=== PATIENT | female | born 1940 | race Caucasian/White ===

== ENCOUNTER → 2017-08-23 | Outpatient (CLI) | payer MEDICARE, OTHER ==
--- NOTE | 2017-08-23 13:16 | MR ---
EXAMINATION TYPE: MR lumbar spine wo con DATE OF EXAM: 08/23/2017 COMPARISON: NONE HISTORY: Low back pain TECHNIQUE: Multiplanar, multisequence images of the lumbar spine were acquired. FINDINGS: There is a T2 hyperintense and T1 hypointense probable 1.8 cm renal cyst. There is mild thi ckening of the left adrenal gland without focal nodule, likely related to adrenal gland hyperplasia. Bone marrow signal is unremarkable other than degenerative endplate changes at L1-L2. Conus medullari s is unremarkable terminating at L1-L2. L1-L2: There is a small broad-based disc bulge resulting in mild bilateral neural foraminal narrowing . L2-L3: There is a small broad-based disc bulge and disc desiccation with no significant neural forami nal narrowing or spinal canal stenosis. L3-L4: There is a small broad-based disc bulge and disc desiccation with no significant neural forami nal narrowing or spinal canal stenosis. L4-L5: A small central disc extrusion/herniation with 5 mm subligamentous cranial migration is seen s uperimposed upon a broad-based disc bulge. Additionally there is ligamentum flavum buckling and facet arthropathy mildly narrowing the spinal canal and left neural foramen. There is moderate right neura l foraminal narrowing and the disc bulge abuts the L4 nerve root. L5-S1: Mild disc desiccation. No herniation/protrusion or disc bulging. No canal stenosis is presen t. Foramina are patent bilaterally. IMPRESSION: 1. Small central disc herniation/extrusion with 5 mm subligamentous cranial extension. Degenerative d isc disease and facet arthropathy also contribute to moderate right neural foraminal narrowing with t he disc bulge abutting the L4 nerve root and mild spinal canal stenosis.
== END | disposition home or self-care (01) ==
LOC: RADMRIMAIN 12:12
PROVIDERS: ATTEND Family Medicine
DX: M48.061 Spinal stenosis, lumbar region without neurogenic claudication (principal); M99.73 Connective tissue and disc stenosis of intervertebral foramina of lumbar region; M51.16 Intervertebral disc disorders with radiculopathy, lumbar region; M46.86 Other specified inflammatory spondylopathies, lumbar region
CPT/HCPCS: 72148

== ENCOUNTER → 2018-12-03 | Outpatient (CLI) | payer MEDICARE ==
--- NOTE | 2018-12-03 15:55 | BD ---
EXAMINATION TYPE: Axial Bone Density DATE OF EXAM: 12/03/2018 COMPARISON: 2005 CLINICAL HISTORY: hypercalcemia Height: 5'1 Weight: 136 FRAX RISK QUESTIONS: History of Fracture in Adulthood: y Secondary Osteoporosis: 3. Menopause before 47: y RISK FACTORS HISTORY OF: Postmenopausal woman: y MEDICATIONS: Additional Medications: high blood pressure Additional History: EXAM MEASUREMENTS: Bone mineral densitometry was performed using the [employer]. Bone mineral density as measured about the Lumbar spine is: ----- L1-L4(G/cm2): 1.050 T Score Values are as follows: ----- L2: -0.4 ----- L3:-1.0 ----- L4: -2.2 ----- L1-L4: -1.1 Bone mineral density has: Decreased -6.8% since study of: 05/13/2006 Bone mineral density about the R hip (g/cm2): 0.651 Bone mineral density about the L hip (g/cm2): 0.693 T Score values are as follows: -----R Neck: -2.8 -----L Neck: -2.5 -----R Total: -2.1 -----L Total: -1.6 Bone mineral density has: Decreased -11.3% since study of: 05/13/2006 IMPRESSION: Osteopenia (T Score between -2.5 and -1). There is slightly increased risk of fracture and the patient may be considered for treatment. Re-Screen 2-5 years. NOTE: T-SCORE=SD OF THE YOUNG ADULT MEAN.
== END | disposition home or self-care (01) ==
LOC: RADBDWWP 14:02
PROVIDERS: ATTEND Family Medicine
DX: M85.80 Other specified disorders of bone density and structure, unspecified site (principal); E83.52 Hypercalcemia
CPT/HCPCS: 77080

== ENCOUNTER 2020-10-18 17:23 | Emergency (ER) | payer MEDICARE ==
[2020-10-18 17:34] VITALS: TEMP 98.4
[2020-10-18] MEDS ORDERED: DIAZEPAM 5 MG/ML 2 ML INJ IVP STA (18:01)
[2020-10-18] MEDS ORDERED: SODIUM CHLORIDE 0.9% 500 ML 500 ML IV STA (18:01)
[2020-10-18] MEDS ORDERED: ONDANSETRON 4 MG/2 ML VIAL IVP STA (18:02)
--- NOTE | 2020-10-18 18:07 | ED ---
General Adult HPI - General Chief complaint: Dizziness Stated complaint: Dizziness Time Seen by Provider: 10/18/20 17:25 Source: patient, EMS, RN notes reviewed, old records reviewed Mode of arrival: EMS Limitations: no limitations - History of Present Illness Initial comments: This is a 80-year-old female presents emergency department stating that she started getting dizzy. Patient states her symptoms of dizziness started Saturday. Patient states she's been having back pain chronically for years and she was taken ibuprofen because it was acting up again. Patient states she stopped taking her blood pressure med at that point a couple days before the dizziness. Patient states that the back pain is typical back pain she's always felt there were no new symptoms. Patient denied any numbness or weakness. Patient denied any chest pain difficulty breathing shortness of breath. Patient denies any palpitations. Patient denies any recent fever chills or cough per patient denies any headache. Patient denies abdominal pain patient denies naus ea vomiting diarrhea. - Related Data Allergies Allergy/AdvReac Type Severity Reaction Status Date / Time cephalexin [From Keflex] Allergy Rash/Hives Verified 10/18/20 17:37 naproxen Allergy Rash/Hives Verified 10/18/20 17:37 Sulfa (Sulfonamide Allergy Rash/Hives Verified 10/18/20 17:37 Antibiotics) sulfamethoxazole Allergy Rash/Hives Verified 10/18/20 17:37 [From Bactrim] Tetracyclic Antidepressants Allergy Rash/Hives Verified 10/18/20 17:37 trimethoprim [From Bactrim] Allergy Rash/Hives Verified 10/18/20 17:37 codeine AdvReac Nausea & Verified 10/18/20 17:37 Vomiting Review of Systems ROS Statement: Those systems with pertinent positive or pertinent negative responses have been documented in the HPI. ROS Other: All systems not noted in ROS Statement are negative. Past Medical History Past Medical History: Hypertension History of Any Multi-Drug Resistant Organisms: None Reported Past Surgical History: Hysterectomy, Tonsillectomy Smoking Status: Former smoker Past Alcohol Use History: None Reported Past Drug Use History: None Reported General Exam - General Exam Comments Initial Comments: GENERAL: Patient is well-developed and well-nourished. Patient is nontoxic and well- hydrated and is in mild distress. ENT: Neck is soft and supple. No significant lymphadenopathy is noted. Oropharynx is clear. Moist mucous membranes. Neck has full range of motion without eliciting any pain. EYES: The sclera were anicteric and conjunctiva were pink and moist. Extraocular movements were intact and pupils were equal round and reactive to light. Eyelids were unremarkable. Patient has nystagmus looking horizontally to the right PULMONARY: Unlabored respirations. Good breath sounds bilaterally. No audible rales rhonchi or wheezing was noted. CARDIOVASCULAR: There is a regular rate and rhythm without any murmurs gallops or rubs. ABDOMEN: Soft and nontender with normal bowel sounds. SKIN: Skin is clear with no lesions or rashes and otherwise unremarkable. NEUROLOGIC: Patient is alert and oriented x3. Cranial nerves II through XII are grossly intact. Motor and sensory are also intact. Normal speech, volume and content. Symmetrical smile. Patient's finger to nose is normal bilaterally MUSCULOSKELETAL: Normal extremities with adequate strength and full range of motion. LYMPHATICS: No significant lymphadenopathy is noted PSYCHIATRIC: Normal psychiatric evaluation. Limitations: no limitations Course Vital Signs 10/18/20 10/18/20 10/18/20 17:25 18:30 19:11 Temperature 98.4 F Pulse Rate 102 H 84 91 Respiratory 18 18 16 Rate Blood Pressure 189/98 189/97 197/114 O2 Sat by Pulse 96 97 97 Oximetry 10/18/20 20:19 Temperature Pulse Rate 78 Respiratory 16 Rate Blood Pressure 146/74 O2 Sat by Pulse 97 Oximetry Medical Decision Making - Medical Decision Making EKG shows normal sinus rhythm at 94 bpm RI interval 222 QRS is 88 QT interval 374 QTC is 467. Patient's EKG shows flipped T waves in precordial leads V4 through V6. Patient also has T-wave inversion in 1 and aVL. 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 Patient has no chest pain difficulty breathing shortness of breath Chest x-ray shows no acute abnormality. CT of the brain shows no acute abnormality. After the patient received a little bit of and she was feeling better though she still had some dizziness. - Lab Data Result diagrams: 10/18/20 18:01 10/18/20 18:01 Lab Results 10/18/20 10/18/20 10/18/20 Range/Units 18:01 18:01 18: WBC 11.5 H (3.8-10.6) k/uL RBC 5.05 (3.80-5.40) m/uL Hgb 14.9 (11.4-16.0) gm/dL Hct 43.8 (34.0-46.0) % MCV 86.7 (80.0-100.0) fL MCH 29.5 (25.0-35.0) pg MCHC 34.0 (31.0-37.0) g/dL RDW 13.0 (11.5-15.5) % Plt Count 358 (150-450) k/uL MPV 7.9 Neutrophils % 83 % Lymphocytes % 10 % Monocytes % 5 % Eosinophils % 1 % Basophils % 0 % Neutrophils # 9.5 H (1.3-7.7) k/uL Lymphocytes # 1.1 (1.0-4.8) k/uL Monocytes # 0.6 (0-1.0) k/uL Eosinophils # 0.2 (0-0.7) k/uL Basophils # 0.1 (0-0.2) k/uL PT 10.1 (9.0-12.0) sec INR 0.9 (<1.2) APTT 21.6 L (22.0-30.0) sec Sodium 136 L (137-145) mmol/L Potassium 3.8 (3.5-5.1) mmol/L Chloride 100 (98-107) mmol/L Carbon Dioxide 24 (22-30) mmol/L Anion Gap 12 mmol/L BUN 25 H (7-17) mg/dL Creatinine 0.92 (0.52-1.04) mg/dL Est GFR (CKD-EPI)AfAm 69 (>60 ml/min/1.73 sqM) Est GFR (CKD-EPI)NonAf 60 (>60 ml/min/1.73 sqM) Glucose 115 H (74-99) mg/dL Calcium 9.8 (8.4-10.2) mg/dL Magnesium 2.3 (1.6-2.3) mg/dL Total Bilirubin 0.6 (0.2-1.3) mg/dL AST 29 (14-36) U/L ALT 24 (4-34) U/L Alkaline Phosphatase 114 (38-126) U/L Troponin I (0.000-0.034) ng/mL Total Protein 7.4 (6.3-8.2) g/dL Albumin 4.5 (3.5-5.0) g/dL 10/18/20 Range/Units 18:01 WBC (3.8-10.6) k/uL RBC (3.80-5.40) m/uL Hgb (11.4-16.0) gm/dL Hct (34.0-46.0) % MCV (80.0-100.0) fL MCH (25.0-35.0) pg MCHC (31.0-37.0) g/dL RDW (11.5-15.5) % Plt Count (150-450) k/uL MPV Neutrophils % % Lymphocytes % % Monocytes % % Eosinophils % % Basophils % % Neutrophils # (1.3-7.7) k/uL Lymphocytes # (1.0-4.8) k/uL Monocytes # (0-1.0) k/uL Eosinophils # (0-0.7) k/uL Basophils # (0-0.2) k/uL PT (9.0-12.0) sec INR (<1.2) APTT (22.0-30.0) sec Sodium (137-145) mmol/L Potassium (3.5-5.1) mmol/L Chloride (98-107) mmol/L Carbon Dioxide (22-30) mmol/L Anion Gap mmol/L BUN (7-17) mg/dL Creatinine (0.52-1.04) mg/dL Est GFR (CKD-EPI)AfAm (>60 ml/min/1.73 sqM) Est GFR (CKD-EPI)NonAf (>60 ml/min/1.73 sqM) Glucose (74-99) mg/dL Calcium (8.4-10.2) mg/dL Magnesium (1.6-2.3) mg/dL Total Bilirubin (0.2-1.3) mg/dL AST (14-36) U/L ALT (4-34) U/L Alkaline Phosphatase (38-126) U/L Troponin I <0.012 (0.000-0.034) ng/mL Total Protein (6.3-8.2) g/dL Albumin (3.5-5.0) g/dL Disposition Clinical Impression: Vertigo Disposition: HOME SELF-CARE Instructions (If sedation given, give patient instructions): Vertigo (ED) Additional Instructions: Continue taking the Antivert as needed. Is patient prescribed a controlled substance at d/c from ED?: No Referrals: Rg Fontenot DO [Primary Care Provider] - 1-2 days Time of Disposition: 21:04
[2020-10-18] MEDS ORDERED: LABETALOL 5 MG/ML VIAL MDV IVP STA (18:18)
[2020-10-18 18:29] LABS: Basophils # (A) 0.1 k/uL (0-0.2); Basophils % (A) 0 %; Eosinophils # (A) 0.2 k/uL (0-0.7); Eosinophils % (A) 1 %; HCT 43.8 % (34.0-46.0); HGB 14.9 gm/dL (11.4-16.0); Lymphocytes # (A) 1.1 k/uL (1.0-4.8); Lymphocytes % (A) 10 %; MCH 29.5 pg (25.0-35.0); MCV 86.7 fL (80.0-100.0); Mean Platelet Volume 7.9; Monocytes # (A) 0.6 k/uL (0-1.0); Monocytes % (A) 5 %; Neutrophils # (A) 9.5 k/uL (1.3-7.7); Neutrophils % (A) 83 %; Platelet Count 358 k/uL (150-450); RBC 5.05 m/uL (3.80-5.40); WBC 11.5 k/uL (3.8-10.6)
[2020-10-18 18:41] LABS: Albumin 4.5 g/dL (3.5-5.0); Calcium 9.8 mg/dL (8.4-10.2); Magnesium 2.3 mg/dL (1.6-2.3); Potassium 3.8 mmol/L (3.5-5.1); Total Bilirubin 0.6 mg/dL (0.2-1.3); Total Protein 7.4 g/dL (6.3-8.2)
[2020-10-18 18:43] LABS: INR 0.9 (<1.2); Prothrombin Time 10.1 sec (9.0-12.0)
[2020-10-18 18:47] LABS: Partial Thromboplastin Time 21.6 sec (22.0-30.0)
[2020-10-18 19:11] VITALS: RESP 16
--- NOTE | 2020-10-18 20:04 | XR ---
EXAMINATION TYPE: XR chest 2V DATE OF EXAM: 10/18/2020 COMPARISON: NONE HISTORY: Shortness of breath TECHNIQUE: Frontal and lateral views of the chest are obtained. FINDINGS: Scattered senescent parenchymal changes noted. Hyperinflation compatible with COPD. No evidence for infiltrate. No evidence for atelectasis. Heart size is stable. Mediastinal structures are stable and grossly unremarkable. No evidence for hilar prominence. Degenerative changes dorsal spine. IMPRESSION: 1. No evidence for acute pulmonary disease.
--- NOTE | 2020-10-18 20:04 | CT ---
EXAMINATION TYPE: CT brain wo con DATE OF EXAM: 10/18/2020 COMPARISON: None HISTORY: c/o dizziness CT DLP: 1080.[address] of the brain was performed. The ventricles, basal cisterns and sulci overlying the cerebral convexities demonstrate mild enlargem ent. There is no evidence for intracranial hemorrhage or sulcal effacement. There is decreased attenuation about the periventricular white matter and deep white matter of both c erebral hemispheres, compatible with chronic small vessel ischemia. Differential diagnosis does inclu de demyelination. No mass effects are seen.No midline shift. Osseous calvarium is intact. If symptoms persist consider MRI. IMPRESSION: 1. Age related atrophic and chronic small vessel ischemic change without acute intracranial process s een at this time.
[2020-10-18 21:33] VITALS: BP 154/78; PULSE 80
== END 2020-10-18 21:30 | disposition home or self-care (01) ==
LOC: EC 17:23
DX: R42 Dizziness and giddiness (principal); I10 Essential (primary) hypertension; Z87.891 Personal history of nicotine dependence
CPT/HCPCS: 36415; 93005; 80053; 83735; 84484; 85025; 85610; 85730; 71046; 70450; 99285; 96374; 96375; 96361; J3360; J2405